=== PATIENT | male | born 2000 | race African-American/Black ===

== ENCOUNTER 2020-06-21 15:06 | Emergency (ER) | payer SELFPAY ==
--- NOTE | 2020-06-21 15:21 | ED.MALEGU ---
HPI - Male Genitourinary General Chief complaint: Urogenital-Male Stated complaint: STD Testing Source: patient Mode of arrival: ambulatory Limitations: no limitations History of Present Illness HPI Narrative: Patient is a 19 year old male who presents requesting treatment for STD. Patient's girlfriend tested positive for chlamydia. Patient requesting prescription or treatment for chlamydia, denies symptoms. Related Data Home Medications Medication Instructions Recorded Confirmed No Home Medications 06/21/20 06/21/20 Allergies Allergy/AdvReac Type Severity Reaction Status Date / Time No Known Allergies Allergy Verified 06/21/20 15:27 Review of Systems Review of Systems: Narrative: CONSTITUTIONAL: Denies fever, chills, or sweats. EYES: Denies visual changes, redness, or discharge. ENT: Denies rhinorrhea, congestion, sore throat, or otalgia. CARDIOVASCULAR: Denies chest pain, palpitations, or edema. RESPIRATORY: Denies cough or dyspnea. GASTROINTESTINAL: Denies abdominal pain, nausea, vomiting, or diarrhea. GENITOURINARY: Denies dysuria or hematuria. SKIN: Denies rash or itching. MUSCULOSKELETAL: Denies back pain, joint pain, or myalgia. NEUROLOGIC: Denies headache, numbness, dizziness, or weakness. PSYCHIATRIC: Denies anxiety or depression. PMFSH Past Medical History Medical History No significant family history No significant past medical history Surgical History Surgical History No significant past surgical history Social History Social History Gender identity (if verbalized by the patient): Male Exam Narrative: Exam Narrative: GENERAL: Well-appearing, well-nourished, and in no acute distress. HEAD: Normocephalic, atraumatic. EYES: No redness or drainage. ENT: Mucous membranes pink and moist. CHEST: No respiratory distress. EXTREMITIES: Normal range of motion. No edema. SKIN: Warm, dry, no rash. NEURO: No focal deficits. Alert and oriented x3. Gait steady. PSYCH: Normal affect. No signs of depression or anxiety. MDM - Male Genitourinary MDM Narrative Medical decision making narrative: Patient to be given a prescription for azithromycin. Refused STD testing at this time and reports that he will attend clinic. Patient aware that all partners should be treated. Patient educated on unprotected sex. Patient aware to not have unprotected sex for 7 days following finish of azithromycin. Patient is stable for discharge to home outpatient follow-up as needed. Critical Care Time Critical Care Time Critical Care Time: No Discharge Plan Discharge Clinical Impression: Exposure to STD Patient Disposition: Home, Self-Care Condition: Stable Instructions: Antibiotic Form, Sexually Transmitted Diseases (ED) Additional Instructions: No unprotected sex for 7 days following finishing antibiotics. Please follow-up with your PCP as needed. Prescriptions: New azithromycin 250 mg tablet 1,000 mg PO ONCE Qty: 4 RF: 0 No Action No Home Medications RF: 0 Follow-up/Referrals: UNKNOWN,DOCTOR [Primary Care Provider] - Time of Disposition: 15:36
[2020-06-21 15:22] VITALS: BP 123/85; PULSE 74; RESP 16; TEMP 36.8; O2SAT 99
== END 2020-06-21 15:40 | disposition home or self-care (01) ==
PROVIDERS: Emergency Provider Nurse Practitioner
DX: Z20.2 Contact with and (suspected) exposure to infections with a predominantly sexual mode of transmission (principal)
CPT/HCPCS: 99203; G0463

== ENCOUNTER 2021-09-11 16:07 | Emergency (ER) | payer BC, MEDICAID, SELFPAY ==
[2021-09-11 16:18] VITALS: BP 124/87; PULSE 89; RESP 16; TEMP 36.9; O2SAT 99
--- NOTE | 2021-09-11 16:34 | ED.SKABFB ---
HPI - Skin/Abscess/Foreign Bdy General Chief complaint: Skin/Abscess/Foreign Body Stated complaint: rash Time Seen by Provider: 09/11/21 16:34 Source: patient and RN notes reviewed Mode of arrival: ambulatory Limitations: no limitations History of Present Illness HPI narrative: 21-year-old male presents to the [facility] with complaints of a rash to the bottom lip and chin area, lower right area MD complaint: rash Related Data Allergies Allergy/AdvReac Type Severity Reaction Status Date / Time No Known Allergies Allergy Verified 09/11/21 16:12 Review of Systems Review of Systems: All systems reviewed & are unremarkable except as noted in HPI and below Constitutional: Constitutional: Reports no additional constitutional complaints, Denies chills and Denies fever(s) Eyes: Eyes: Reports no additional eye complaints ENT: Reports system reviewed and no additional complaints, except as documented Cardiovascular: Cardiovascular: Reports no additional cardiovascular complaints, Denies chest pain and Denies radiating jaw, neck or arm pain Respiratory: Respiratory: Reports no additional respiratory complaints, Denies cough and Denies dyspnea Musculoskeletal: Musculoskeletal: Reports no additional musculoskeletal complaints Integumentary/Breasts: Skin/Breast: Reports as per HPI Comments: 5 small vesicular areas below right bottom lip Neurologic: Reports system reviewed and no additional complaints, except as documented Allergic/Immunologic: Allergic/Immunologic: Reports no additional allergic/immunologic complaints PMFSH Past Medical History Medical History No significant family history No significant past medical history Surgical History Surgical History No significant past surgical history Social History Social History Gender identity (if verbalized by the patient): Male Exam Const: General: no acute distress and alert Nutritional Appearance: well nourished Orientation/consciousness: patient oriented x3 Limitations: no limitations HENMT: Head: normal to inspection Nose image: 1. 5 vesicular areas noted without increased redness. Mouth: Yes Normal oral and palatal mucosa present Throat: posterior oropharynx normal Eyes: Pupils: Equal, round and reactive pupils present Neck: Neck: normal visual inspection, no lymphadenopathy and no meningeal signs Chest: Chest palpation & inspection: normal inspection of the chest Resp: Effort & Inspection: normal respiratory effort Cardio: Rate: regular rate Skin: General skin exam: normal color Rashes: no rashes Wounds: no wounds Neuro: General: patient oriented x3, moves all extremities, no meningeal signs and no focal motor deficits Speech: normal speech Gait exam (Neuro): Normal gait present Extrem: General: normal to inspection Psych: Appearance: grossly normal and well kempt Mental Status: mental status grossly normal Affect: normal affect Attitude: cooperative Thought content: Yes Normal thought content present Course Course Emergency Course: Discharge instructions reviewed with patient, as well as provided in writing per nursing staff. The instructions also include specific and strict return/GO TO THE ER as well as f/u information. All questions have been answered, and the patient deny any further questions with discharge and discharge plan. Some parts of this dictation were generated by voice recognition software and may contain typographical and/or grammatical inaccuracies. Level of Care: Express Care Visit Vital Signs Vital signs: Vital Signs Temperature 98.5 F 09/11/21 16:18 Pulse Rate 89 09/11/21 16:18 Respiratory Rate 16 09/11/21 16:18 Blood Pressure 124/87 09/11/21 16:18 Pulse Oximetry 99 09/11/21 16:18 Temperature 98.5 F 09/11/21 16:18 Pulse Rate 89
== END 2021-09-11 16:45 | disposition home or self-care (01) ==
PROVIDERS: Emergency Provider Nurse Practitioner
DX: B02.9 Zoster without complications (principal)
CPT/HCPCS: 99213; G0463